=== PATIENT | female | born 1950 ===

== ENCOUNTER 2022-11-14 06:45 | Day surgery (SDC) | payer OTHER ==
[~2022-11-14] VITALS: Ht 165.1 cm; Wt 97.1 kg
[~2022-11-14 06:45] MED LIST: GLUMETZA500 MG PO; OMEPRAZOLE-BIC1 EACH PO; SINGULAIR10 MG PO; SYNTHROID88 MCG PO
== END 2022-11-14 14:30 | disposition home or self-care (01) ==
LOC: CIR.AMB 06:45
PROVIDERS: ATTEND Orthopaedic Surgery
DX: M75.121 Complete rotator cuff tear or rupture of right shoulder, not specified as traumatic (principal); M75.21 Bicipital tendinitis, right shoulder; M24.111 Other articular cartilage disorders, right shoulder; M75.41 Impingement syndrome of right shoulder; M75.51 Bursitis of right shoulder; I10 Essential (primary) hypertension; Z20.822 Contact with and (suspected) exposure to COVID-19